=== PATIENT | female | born 1970 | race Caucasian/White ===

== ENCOUNTER 2020-11-05 11:18 | Outpatient (CLI) | payer BC, SELFPAY ==
[2020-11-07 06:28] LABS: FSH 44.9 mIU/mL (***); LH 26.6 mIU/mL (***)
[2020-11-08 12:00] LABS: Testosterone Total 18 ng/dL (2-45)
[2020-11-09 20:28] LABS: Estradiol, Ultrasensitive 40 pg/mL
== END 2020-11-05 11:19 | disposition home or self-care (01) ==
PROVIDERS: PCP Physician Assistant; Visit Provider Student in an Organized Health Care Education/Training Program
DX: N95.1 Menopausal and female climacteric states (principal)
CPT/HCPCS: 36415; 82670; 83001; 83002; 84403

== ENCOUNTER 2020-11-13 00:22 | Day surgery (SDC) | payer BC, SELFPAY ==
[2020-10-29 11:29] VITALS: BMI 41.8
[2020-11-13 09:43] VITALS: BP 130/86; PULSE 77; RESP 12; TEMP 36.2; O2SAT 96; BMI 41.1
[2020-11-13] MEDS: LACTATED RINGERS 1,000 ML 150 ML IV CONT (10:01)
--- NOTE | 2020-11-13 10:21 | P.PNAN_ITS ---
Anes - Initial Pre Proc Eval Procedure: Operation Date: 11/13/20 11:00 Proposed Procedures p Screening Colonoscopy - Kalia Espinal MD Date/Time: 11/13/20 10:21 Surgeon: Kalia Espinal MD Pre Op Diagnosis: neoplasm screening Patient Data Age: 50 Gender: F Height: 5 ft 5 in Weight: 112 kg Last Vital Signs Temp 36.2 C L 11/13/20 09:43 Pulse 77 11/13/20 09:43 Resp 12 11/13/20 09:43 BP 130/86 11/13/20 09:43 Pulse Ox 96 11/13/20 09:43 Allergies Allergy/AdvReac Type Severity Reaction Status Date / Time hydrocodone Allergy Mild Unknown Verified 11/13/20 09:39 codeine Allergy Unknown Unknown Verified 11/13/20 09:39 apremilast [From Otezla] AdvReac Severe suicidal Verified 11/13/20 09:39 thoughts adalimumab [From Humira] AdvReac Unknown Verified 11/13/20 09:39 Home Medications Medication Instructions Recorded Confirmed Type lisinopril 20 mg tablet 20 mg PO DAILY 09/16/19 10/29/20 History venlafaxine 100 mg tablet 100 mg PO BID 09/16/19 10/29/20 History ixekizumab 80 mg/mL subcutaneous 80 mg SUBCUT ONCE 09/25/20 10/29/20 History auto-injector sodium,potassium,mag sulfates 17.5 See Rx Instructions PO .COMPLEX 10/25/20 10/29/20 Rx gram-3.13 gram-1.6 gram oral soln #354 ml Patient hx anesthesia problems: none Family hx anesthesia problems: none PMFSH Past Medical History Medical History Anxiety Autoimmune disease Depression History of blood transfusion HTN (hypertension) Hx of induced 07/1995 Psoriasis Vaginal delivery 09/28/1997 Surgical History Surgical History H/O gastric bypass 2009 History of cholecystectomy 1999 History of endometrial ablation 2013 History of intestinal surgery 2015 Hx of section 05/15/2003 Status post breast biopsy [place] teeth removed Family History Family History Mother Family history of blood dyscrasia Cerebrovascular accident Father Hypertension Family history of elevated blood lipids Grandparent Acute myocardial infarction Social History Social History Smoking status: Never smoker Second hand tobacco smoke exposure: No Alcohol intake: former Living arrangements: with family Gender identity (if verbalized by the patient): Female Spiritual care concerns: No Anes - Eval Final PreProcedure Day of Procedure 11/13/20 10:21 Patient weight: morbidly obese Heart: regular rate and rhythm Lungs: clear to auscultation Airway: Mallampati scale class II Neurological: alert and oriented Last oral intake: >/= 8 hours ASA classification: III Emergent: no Anesthetic plan: proceed Anesthesia type and monitoring: general GIVS and standard monitoring Informed Consent: The patient's anesthetic plan and its attendant risks and benefits were discussed with the patient/family/POA. Questions were solicited and answers provided to the satisfaction of the patient/family/POA.
--- NOTE | 2020-11-13 10:53 | PM.HPGS ---
History of Present Illness History of Present Illness Consent: Risks, benefits, and alternatives have been discussed and questions answered. Patient agrees to proceed with procedure. Chief complaint: neoplasm screening Narrative: Maryam Isaasc is a 50 year old female here for first screening colonoscopy Review of Systems Constitutional: Constitutional: Denies headache(s) and Denies weakness Eyes: Eyes: Denies blurry vision ENT: Reports Normal hearing present, Denies headache(s) and Denies neck pain Cardiovascular: Cardiovascular: Denies chest pain and Denies dyspnea Respiratory: Respiratory: Denies dyspnea Gastrointestinal: Gastrointestinal: Reports no additional gastrointestinal complaints Genitourinary: Genitourinary: Denies dysuria Musculoskeletal: Musculoskeletal: Denies neck pain Integumentary/Breasts: Skin/Breast: Denies dry skin Neurologic: Reports Normal hearing present, Denies headache(s) and Denies weakness Psychiatric: Psychiatric: Denies anxiety Endocrine: Endocrine: Denies change in body appearance Hematologic/Lymphatic: Hematologic/Lymphatic: Denies easy bleeding Allergic/Immunologic: Allergic/Immunologic: Denies urticaria PMFSH Past Medical History Medical History Anxiety Autoimmune disease Depression History of blood transfusion HTN (hypertension) Hx of induced 07/1995 Psoriasis Vaginal delivery 09/28/1997 Surgical History Surgical History H/O gastric bypass 2009 History of cholecystectomy 1999 History of endometrial ablation 2013 History of intestinal surgery 2015 Hx of section 05/15/2003 Status post breast biopsy [place] teeth removed Family History Family History Mother Family history of blood dyscrasia Cerebrovascular accident Father Hypertension Family history of elevated blood lipids Grandparent Acute myocardial infarction Social History Social History Smoking status: Never smoker Second hand tobacco smoke exposure: No Alcohol intake: former Living arrangements: with family Gender identity (if verbalized by the patient): Female Spiritual care concerns: No Meds Home Medications and Allergies Home Medications Medication Instructions Recorded Confirmed Type lisinopril 20 mg tablet 20 mg PO DAILY 09/16/19 10/29/20 History venlafaxine 100 mg tablet 100 mg PO BID 09/16/19 10/29/20 History ixekizumab 80 mg/mL subcutaneous 80 mg SUBCUT ONCE 09/25/20 10/29/20 History auto-injector sodium,potassium,mag sulfates 17.5 See Rx Instructions PO .COMPLEX 10/25/20 10/29/20 Rx gram-3.13 gram-1.6 gram oral soln #354 ml Allergies Allergy/AdvReac Type Severity Reaction Status Date / Time hydrocodone Allergy Mild Unknown Verified 11/13/20 09:39 codeine Allergy Unknown Unknown Verified 11/13/20 09:39 apremilast [From Otezla] AdvReac Severe suicidal Verified 11/13/20 09:39 thoughts adalimumab [From Humira] AdvReac Unknown Verified 11/13/20 09:39 Vital Signs Vital Signs - 24 hr 11/13/20 09:43 Temperature 97.2 F L Pulse Rate 77 Respiratory Rate 12 Blood Pressure 130/86 Pulse Oximetry 96 Exam Const: General: comfortable and no acute distress HENMT: General nose exam: Normal nares present Eyes: General: appearance normal, both eyes and all related structures Neck: Neck: no JVD Resp: Auscultation: clear to auscultation bilaterally Cardio: Rate: regular rate Rhythm: regular rhythm GI: Inspection: non-distended GI Palp: Yes Soft to palpation Skin: General skin exam: normal color Neuro: General: gait normal Speech: normal speech Extrem: General: normal to inspection Psych: Mental Status: mental status grossly normal Assessment and Plan Assessment and angie
[2020-11-13 11:16] VITALS: BP 113/58; PULSE 64; RESP 18; O2SAT 97
[2020-11-13 11:26] VITALS: BP 118/79; PULSE 57; RESP 16; O2SAT 100
[2020-11-13 11:36] VITALS: BP 129/85; PULSE 60; RESP 15; O2SAT 100
== END 2020-11-13 12:10 | disposition home or self-care (01) ==
PROVIDERS: PCP Physician Assistant; Visit Provider Internal Medicine Gastroenterology
PROC: 0DJD8ZZ Inspection of Lower Intestinal Tract, Via Natural or Artificial Opening Endoscopic (ICD-10-PCS; CPT 45378; principal; 2020-11-13 11:00)
DX: Z12.11 Encounter for screening for malignant neoplasm of colon (principal); D12.5 Benign neoplasm of sigmoid colon; I10 Essential (primary) hypertension; M35.9 Systemic involvement of connective tissue, unspecified; L40.9 Psoriasis, unspecified; F41.8 Other specified anxiety disorders; Z98.84 Bariatric surgery status; E66.01 Morbid (severe) obesity due to excess calories; Z68.41 Body mass index [BMI] 40.0-44.9, adult
CPT/HCPCS: 45380; 88305; J2704; J7120

== ENCOUNTER 2022-05-15 01:34 | Emergency (ER) | payer BC, SELFPAY ==
[2022-05-15] VITALS (9 sets, daily range): BP systolic 154–178; BP diastolic 94–106; PULSE 74–94; RESP 15–20; TEMP 36.2; O2SAT 97–100
--- NOTE | ~2022-05-15 | CT_ITS ---
EXAMINATION: CT abdomen pelvis wo con DATE: 05/15/2022 02:53 INDICATION: Left kidney stone. TECHNIQUE: Computed tomography (CT) of the abdomen and pelvis was performed without intravenous contr ast. Automated exposure control and iterative reconstruction technique were employed. The dose-length product was 1236.58 mGy-cm. COMPARISON: CT abdomen and pelvis 09/11/2015 FINDINGS: The visualized portions of the lung bases demonstrate a calcified right lung nodule, consis tent with old granulomatous disease. No pleural effusion. The heart size is normal. No pericardial ef fusion. There is a small sliding hiatal hernia. There are surgical changes in the stomach. The liver is normal. There are changes of cholecystectomy. The spleen, pancreas, adrenal glands, and right kidn ey are normal. There is mild left hydronephrosis. There is a 7 mm stone in proximal left ureter. Ther e is a 2.4 cm cyst in left kidney. There are no dilated loops of bowel. The appendix is normal. There are no pathologically enlarged lymph nodes. There is no free intraperitoneal fluid. There is severe lower lumbar spondylosis. IMPRESSION: 1. 7 mm stone in proximal left ureter with mild left hydronephrosis. Reviewed, dictated and finalized at location A.
[2022-05-15 02:01] LABS: Basophils Percent Auto 0.4 % (0.2-1.2); Eosinophils Absolute Auto 0.2 K/mm3 (0-0.3); Eosinophils Percent Auto 2.1 % (0-4.4); Hematocrit 41.9 % (37.0-47.0); Hemoglobin 13.6 g/dL (12.0-15.0); Immature Granulocyte Absolute 0.04 K/mm3 (0.00-0.031); Immature Granulocyte Percent A 0.4 % (0-0.5); Lymphocytes Absolute Auto 4.27 K/mm3 (0.9-3.2); Lymphocytes Percent Auto 37.5 % (18.3-44.2); Mean Corpuscular HGB Conc 32.5 g/dl (32-36); Mean Corpuscular Hemoglobin 30.7 pg (26-34); Mean Corpuscular Volume 94.6 fl (80-100); Mean Platelet Volume 9.8 fl (7.4-10.4); Monocytes Absolute Auto 0.9 K/mm3 (0.1-0.6); Monocytes Percent Auto 8.3 % (2.6-8.5); Neutrophils Absolute Auto 5.9 K/mm3 (1.3-6.7); Neutrophils Percent Auto 51.3 % (45.5-73.1); Platelet Count Result 226 k/mm3 (150-375); Red Blood Count 4.43 M/mm3 (4.2-5.4); Red Cell Distribution Width 13.2 % (11.5-14.5); White Blood Count 11.4 K/mm3 (4.5-10.0)
[2022-05-15 02:10] LABS: Ethanol 96 mg/dL (<10)
[2022-05-15 02:11] LABS: Alanine Aminotransferase 26 U/L (6-35); Albumin Level 4.6 g/dL (3.5-5.1); Alkaline Phosphatase 105 U/L (38-126); Anion Gap 11 mmol/L (8-16); Aspartate Amino Transferase 39 U/L (14-36); Bilirubin,Total 0.3 mg/dL (0.2-1.3); Blood Urea Nitrogen 17 mg/dL (7-17); Calcium 9.2 mg/dL (8.4-10.2); Carbon Dioxide 24 mmol/L (22-30); Chloride 104 mmol/L (98-107); Estimated CRCL calculation 85 ml/min; Estimated Glomerular Filt Rate > 60; Glucose 103 mg/dL (65-110); Lipase 59 U/L (23-300); Sodium 139 mmol/L (137-145)
--- NOTE | 2022-05-15 02:34 | ED.GENADULT ---
HPI - General Adult General Chief complaint: Abdominal Pain Stated complaint: left flank/abd pain, hx gastric bypass Time Seen by Provider: 05/15/22 01:59 History of Present Illness HPI narrative: a 51-year-old female presenting to ED with sudden onset of left-sided flank pain. Patient says that it woke her from sleep at approximately 1:00 p.m.. It is a sharp pain on her left flank that radiates down into her left groin. It comes and goes. She says this feels similar to when she had a kidney stone in the past. Patient denies urinary symptoms. Patient denies nausea vomiting diarrhea. Related Data Home Medications Medication Instructions Recorded Confirmed lisinopril 20 mg tablet 20 mg PO DAILY 09/16/19 10/29/20 venlafaxine 100 mg tablet 100 mg PO BID 09/16/19 10/29/20 ixekizumab 80 mg/mL subcutaneous 80 mg subcut ONCE 09/25/20 10/29/20 auto-injector (Taltz Autoinjector) Allergies Allergy/AdvReac Type Severity Reaction Status Date / Time hydrocodone Allergy Mild Unknown Verified 05/15/22 01:46 codeine Allergy Unknown Unknown Verified 05/15/22 01:46 apremilast [From Otezla] AdvReac Severe suicidal Verified 05/15/22 01:46 thoughts adalimumab [From Humira] AdvReac Unknown Verified 05/15/22 01:46 Review of Systems Review of Systems: CONSTITUTIONAL: Denies night sweats. EYES: No eye pain ENT: Denies rhinorrhea CARDIOVASCULAR: Denies palpitations RESPIRATORY: Denies hemoptysis GASTROINTESTINAL: Denies hematemesis GENITOURINARY: Denies hematuria. SKIN: Denies rash MUSCULOSKELETAL: Denies myalgia. NEUROLOGIC: Denies weakness. PSYCHIATRIC: Denies delusions PMFSH Past Medical History Medical History Anxiety Autoimmune disease Colon cancer screening Depression History of blood transfusion HTN (hypertension) Hx of induced 07/1995 Psoriasis Vaginal delivery 09/28/1997 Surgical History Surgical History H/O gastric bypass 2009 History of cholecystectomy 1999 History of endometrial ablation 2014 History of intestinal surgery 2015 Hx of section 05/15/2003 Status post breast biopsy [place] teeth removed Family History Family History Mother Family history of blood dyscrasia Cerebrovascular accident Father Hypertension Family history of elevated blood lipids Grandparent Acute myocardial infarction Social History Social History Smoking status: Never smoker Second hand tobacco smoke exposure: No Alcohol intake: former Alcohol use details: stopped drinking 11/09. [facility] Gender identity (if verbalized by the patient): Female Spiritual care concerns: No Exam Narrative: APPEARANCE: No apparent distress. Head atraumatic. EYES: PERRLA/EOMI, NOSE: Normal no drainage NECK: Supple, Trachea midline RESPIRATORY: CTAB, No increased work of breathing. CARDIOVASCULAR: S1S2 appreciated ABDOMINAL: Soft, nontender, nondistended, no CVA tenderness MUSCULOSKELETAl: No obvious deformities NEURO: Alert. Moving 4/4 extremities SKIN:: Warm, dry. Normal color PSYCHIATRIC: Normal affect Course Vital Signs Vital signs: Vital Signs Temperature 97.2 F L 05/15/22 01:40 Pulse Rate 81 05/15/22 01:40 Respiratory Rate 15 05/15/22 01:40 Blood Pressure 178/106 H 05/15/22 01:40 Pulse Oximetry 100 05/15/22 01:40 Oxygen Delivery Room Air 05/15/22 01:40 Temperature 97.2 F L 05/15/22 01:40 Pulse Rate 94 05/15/22 02:00 Respiratory Rate 15 05/15/22 02:00 Blood Pressure 154/94 H 05/15/22 02:17 Pulse Oximetry 100 05/15/22 02:19 Oxygen Delivery Room Air 05/15/22 01:40 Medical Decision Making MDM Narrative Medical decision making narrative: is a 51-year-old female presenting ED with flank pain. CT re
[2022-05-15] MEDS: KETOROLAC 15 MG/ML VIAL (*BKC) IV PUSH (02:41)
[2022-05-15 02:52] LABS: RBC Urine 0-2 /hpf (0-2); Squamous Epithelial Cell Urine Rare /hpf (Few); WBC Urine 0-3 /hpf
[2022-05-15 02:56] LABS: Appearance Urine Clear (Clear); Bilirubin Urine Negative (Negative); Color Urine Yellow (Yellow); Glucose Urine UA Negative (Negative); Ketones Urine Negative (Negative); Leukocyte Esterase Ur Trace LEU/UL (Negative); Nitrate Urine Negative (Negative); Protein Urine Negative (Negative); Urobilinogen Urine 0.2 mg/dL (<2.0); pH Urine 5.5 (5.0-9.0)
[2022-05-15] MEDS: ACETAMINOPHEN 500 MG TABLET 1000 MG PO (02:58)
[2022-05-15 02:59] LABS: Add Urine Microscopic? YES; Blood Urine Trace (Negative)
== END 2022-05-15 05:47 | disposition home or self-care (01) ==
PROVIDERS: Emergency Provider Emergency Medicine; PCP Physician Assistant
DX: N13.2 Hydronephrosis with renal and ureteral calculous obstruction (principal); Z98.84 Bariatric surgery status; I10 Essential (primary) hypertension; M35.9 Systemic involvement of connective tissue, unspecified; F41.9 Anxiety disorder, unspecified; F32.A Depression, unspecified
CPT/HCPCS: 36415; 74176; 80053; 80307; 81001; 83690; 85025; 96374; 99284; A9270; J1885

== ENCOUNTER 2022-05-22 08:15 | Outpatient (CLI) | payer BC, SELFPAY ==
--- NOTE | 2022-05-22 08:28 | ECG_ITS ---
Measurements Intervals [place] Rate: 74 P: 38 PA: 168 QRS: -44 QRSD: 90 T: 1 QT: 361 QTc: 403 Interpretive Statements SINUS RHYTHM LEFT AXIS DEVIATION POOR R WAVE PROGRESSION, ANTERIOR LEADS BORDERLINE ECG NO PREVIOUS ECG AVAILABLE FOR COMPARISON Electronically Signed On 05-22-2022 8:53:25 CDT by Adonis Cervantes D.O.
[2022-05-22 08:54] LABS: Anion Gap 9 mmol/L (8-16); Blood Urea Nitrogen 19 mg/dL (7-17); Calcium 9.5 mg/dL (8.4-10.2); Carbon Dioxide 32 mmol/L (22-30); Chloride 95 mmol/L (98-107); Estimated Glomerular Filt Rate 52; Glucose 94 mg/dL (65-110); Potassium 4.5 mmol/L (3.4-5.0); Sodium 136 mmol/L (137-145)
[2022-05-22 09:07] LABS: Prothrombin Time 12.5 Seconds (11.1-14.7)
[2022-05-22 09:08] LABS: Partial Thromboplastin Time 25.6 SECONDS (22.3-36.8)
[2022-05-22 09:08] LABS: Mucus Urine Rare /lpf; Squamous Epithelial Cell Urine Few /hpf (Few)
[2022-05-22 09:09] LABS: Appearance Urine Clear (Clear); Bilirubin Urine 1+ (Negative); Blood Urine Trace-lysed (Negative); Color Urine Yellow (Yellow); Glucose Urine UA Negative (Negative); Ketones Urine Negative (Negative); Leukocyte Esterase Ur Trace LEU/UL (Negative); Nitrate Urine Negative (Negative); Protein Urine Negative (Negative); Specific Grav Ur 1.025 (1.001-1.035)
[2022-05-22 09:10] LABS: Add Urine Microscopic? YES
== END 2022-05-22 08:16 | disposition home or self-care (01) ==
LOC: ANHSURGERY 08:22
PROVIDERS: Anesthesiology; PCP Physician Assistant; Visit Provider Urology
DX: N20.0 Calculus of kidney (principal); I10 Essential (primary) hypertension; Z79.899 Other long term (current) drug therapy; Z01.818 Encounter for other preprocedural examination; R94.31 Abnormal electrocardiogram [ECG] [EKG]
CPT/HCPCS: 36415; 80048; 81001; 85610; 85730; 87086; 93005

== ENCOUNTER 2022-05-23 00:39 | Day surgery (SDC) | payer BC, SELFPAY ==
[2022-05-21 15:39] VITALS: BMI 35.9
--- NOTE | 2022-05-21 15:54 | PC.NURSE ---
Report to the Outpatient Waiting Room, entrance under the green pavilion located off [facility], at time 10:00 on date 05/23/22. OR Time: 12:00. - You and your visitor will be asked to self-screen and do not enter if you have any COVID symptoms. - Only one visitor and NO children visitors are allowed at this time. - The patient visitor is requested to leave or wait in car when not with patient due to restrictions. - A mask is required within the hospital. Patients may have clear liquids (water, carbonated beverages, clear teas, apple juice) until 3 hours prior to surgery (9:00) with a maximum of 20 ounces. - No food from midnight until time of surgery Take the following medications with a SIP of water the morning of surgery: VENLAFAXINE, PAIN PILL (IF NEEDED) Medications to discontinue per physician: N/A Date to take last dose: N/A Please no make-up, nail divehi, hairspray, perfume, deodorant, or body powder the day of surgery. No jewelry (including any body piercings) or valuables the day of surgery, leave them at home. Please take a shower or bath the night before, or the morning of, surgery with an antibacterial soap. Wear comfortable, loose fitting clothing. - Jewelry must be removed prior to entering the operating room. Rings and piercings that are not removed may be cut off. - The hospital will not accept responsibility for valuables. - Please leave all valuables, including medications, at home the day of surgery. If you are going home after surgery, a licensed cdl bulk driver must drive you home. - NO public transportation without another adult. - We recommend that an adult stay with you for 24 hours following discharge. - We also recommend that you do not drive, make important decision, drink alcoholic beverages, or take any drugs that were not prescribed by your health care provider for at least 24 hours after your discharge time. Follow any additional instructions given to you from your surgeon. If you or anyone in your household have experienced Covid symptoms in the past week, please notify your surgeon or the nurse liaison at the phone number below for possible testing. Telephone instructions given to PT - MAYO REED and asked if any additional questions and then verbalized understanding. Patient advised to call surgeon office or pre surgery nurse liaison [phone] if any additional questions.
--- NOTE | 2022-05-22 15:42 | WPDANESEPPF ---
Anes - Initial Pre Proc Eval Procedure: Operation Date: 05/23/22 12:00 Proposed Procedures p Left Ureteral Extracorporeal Shock Wave Lithotripsy - Rad Varela MD s Possible Cystoscopy, Left Ureteroscopy, Left Stone Extraction, Left Retrograde Pyelogram, Left Stent Placement, Holmium Laser Lithotripsy - Rad Varela MD Date/Time: 05/22/22 15:42 Surgeon: Rad Varela MD Pre Op Diagnosis: Lt Ureteral Stone Patient Data Age: 51 Gender: F Height: 1.66 m Weight: 99.34 kg Allergies Allergy/AdvReac Type Severity Reaction Status Date / Time hydrocodone Allergy Mild Difficulty Verified 05/23/22 10:45 Breathing codeine Allergy Unknown Difficulty Verified 05/23/22 10:45 Breathing apremilast [From Otezla] AdvReac Severe suicidal Verified 05/23/22 10:45 thoughts adalimumab [From Humira] AdvReac Other Verified 05/23/22 10:45 Home Medications Medication Instructions Recorded Confirmed Type venlafaxine 100 mg tablet 100 mg PO BID 09/16/19 05/23/22 History hydrocodone 5 mg-acetaminophen 325 1 tablet PO Q4H PRN pain 7 days 05/15/22 05/23/22 Rx mg tablet #30 tabs ondansetron 4 mg disintegrating 4 mg PO Q8H PRN nausea and 05/15/22 05/23/22 Rx tablet vomiting #10 tabs tamsulosin 0.4 mg capsule 0.4 mg PO HS 14 days #14 caps 05/15/22 05/23/22 Rx acetaminophen 500 mg tablet 500 mg PO TID PRN Pain 05/21/22 05/23/22 History lisinopril 20 1 tablet PO DAILY 05/21/22 05/23/22 History mg-hydrochlorothiazide 12.5 mg tablet risankizumab-rzaa 150 mg/mL 150 mg subcut ONCE 05/21/22 05/23/22 History subcutaneous pen injector (Skyrizi) Patient hx anesthesia problems: none Family hx anesthesia problems: none Results Review: All pre-operative results and documents have been reviewed as part of the pre-operative evaluation. [facility] Past Medical History Medical History Anxiety Autoimmune disease Colon cancer screening Depression History of blood transfusion HTN (hypertension) Hx of induced 07/1995 Psoriasis Vaginal delivery 09/28/1997 Surgical History Surgical History H/O gastric bypass 2009 History of cholecystectomy 2000 History of endometrial ablation 2014 History of intestinal surgery 2015 Hx of section 05/15/2003 Status post breast biopsy [place] teeth removed Family History Family History Mother Family history of blood dyscrasia Cerebrovascular accident Father Hypertension Family history of elevated blood lipids Grandparent Acute myocardial infarction Social History Social History Smoking status: Never smoker Second hand tobacco smoke exposure: No Alcohol intake: former Drinks per week: 3 Alcohol use details: stopped drinking 11/09. [facility] Substance use: never Substance use type: does not use Living arrangements: with family Additional living arrangements comments: DAUGHTER Gender identity (if verbalized by the patient): Female Spiritual care concerns: No Anes - Eval Final PreProcedure Day of Procedure 05/22/22 15:42 Patient weight: morbidly obese Heart: regular rate and rhythm Lungs: clear to auscultation Airway: Mallampati scale class II Neurological: alert and oriented Last oral intake: >/= 8 hours ASA classification: III Emergent: no Anesthetic plan: proceed Anesthesia type and monitoring: general LMA and standard monitoring Results Review: All pre-operative results and documents have been reviewed as part of the pre-operative evaluation. Informed Consent: The patient's anesthetic plan and its attendant risks and benefits were discussed with the patient/family/POA. Questions were solicited and answers provided to the satisfaction of the patient/family/POA.
[2022-05-23] VITALS (8 sets, daily range): BP systolic 119–139; BP diastolic 73–90; PULSE 58–81; RESP 15–18; TEMP 36–36.6; O2SAT 100
--- NOTE | ~2022-05-23 | XR_ITS ---
EXAMINATION: XR abdomen/kub 1V DATE: 05/23/2022 10:25 INDICATION: Kidney stone. TECHNIQUE: A supine view of the abdomen on 2 radiographs was obtained. COMPARISON: CT abdomen and pelvis 05/15/2022 FINDINGS: There are no dilated loops of bowel. There are phleboliths in the pelvis. There is 11 x 5 m m stone in proximal left ureter. Surgical clips in the right upper quadrant are likely from cholecyst ectomy. There are staple lines in the area of the stomach. IMPRESSION: 1. 11 x 5 mm stone in proximal left ureter. Reviewed, dictated and finalized at location A.
[2022-05-23] MEDS: LACTATED RINGERS 1,000 ML 30 ML IV CONT (10:59)
[2022-05-23] MEDS: ceFAZolin 2 GM/D5W 50 ML 2 GM/50 ML BAG IVPB (12:51)
--- NOTE | 2022-05-23 13:38 | W.PM.PROC2 ---
Procedure Note - Detailed Date of Procedure 05/23/22 Pre-op Diagnosis Lt Ureteral Stone Post-op Diagnosis Same Procedure Performed Eswl of left ureteral calculus Surgeon Rad Varela MD Anesthesia General Description of Procedure Patient taken to operative suite and correctly identified. Once anesthesia was obtained the left ureteral stone 7 x 11 mm was localized in both planes. 3000 shocks were given to the stone. There appeared to be good fragmentation. She was taken to recovery room in stable condition. Drains No Packing No Pathology None sent Complications No immediate complications Condition Stable Disposition PACU
== END 2022-05-23 15:37 | disposition home or self-care (01) ==
PROVIDERS: PCP Physician Assistant; Visit Provider Urology
PROC: (CPT 50590; principal; 2022-05-23 12:00)
DX: N20.1 Calculus of ureter (principal); I10 Essential (primary) hypertension; L40.9 Psoriasis, unspecified; M35.9 Systemic involvement of connective tissue, unspecified; F41.9 Anxiety disorder, unspecified; F32.A Depression, unspecified; Z98.84 Bariatric surgery status; E66.01 Morbid (severe) obesity due to excess calories; Z68.36 Body mass index [BMI] 36.0-36.9, adult
CPT/HCPCS: 50590; 74018; J0690; J1100; J2250; J2405; J2704; J7120

== ENCOUNTER 2022-06-06 14:05 | Outpatient (CLI) | payer BC, SELFPAY ==
--- NOTE | ~2022-06-06 | XR_ITS ---
EXAMINATION: XR abdomen/kub 1V DATE: 06/06/2022 14:29 INDICATION: Left ureteral stone. TECHNIQUE: A supine view of the abdomen on 2 radiographs was obtained. COMPARISON: CT abdomen and pelvis 05/15/2022 FINDINGS: There are no dilated loops of bowel. Surgical clips in the right upper quadrant are likely from cholecystectomy. There are surgical changes in the stomach. There are phleboliths in the pelvis. IMPRESSION: 1. No visible urolithiasis. Reviewed, dictated and finalized at location A. IMPRESSION: 1. No visible urolithiasis.
== END 2022-06-06 14:06 | disposition home or self-care (01) ==
PROVIDERS: PCP Physician Assistant; Visit Provider Urology
DX: N20.1 Calculus of ureter (principal)
CPT/HCPCS: 74018

== ENCOUNTER 2023-08-16 15:39 | Emergency (ER) | payer BC, SELFPAY ==
[2023-08-16] VITALS (9 sets, daily range): BP systolic 109–129; BP diastolic 70–83; PULSE 57–81; RESP 10–20; TEMP 36.5; O2SAT 97–100
--- NOTE | ~2023-08-16 | CT_ITS ---
EXAMINATION: CT brain wo con DATE: 08/16/2023 17:02 INDICATION: head injury, hematoma . TECHNIQUE: Computed tomography (CT) of the head was performed without intravenous contrast. The mA wa s adjusted according to patient size. Iterative reconstruction technique was employed. The dose-lengt h product was 605.33 mGy-cm. COMPARISON: None. FINDINGS: No acute intracranial hemorrhage or extra-axial fluid collection. No hydrocephalus, mass, or herniation. No acute ischemic infarct. Unremarkable dural venous sinus attenuation. No acute osseous abnormality. Left posterior scalp contusion/laceration. The aerated spaces are clear. IMPRESSION: No acute intracranial process. Reviewed, dictated and finalized at location K. ING MACHINE OPERATOR SINGLE NEEDLE
--- NOTE | ~2023-08-16 | XR_ITS ---
EXAM: XR ankle LT min 3V DATE: 08/16/2023 16:02 HISTORY: fall, rolled ankle . COMPARISON: X-ray left tibia/fibula 03/28/2009. FINDINGS: Normal mineralization. No fracture or dislocation. No lytic or blastic lesion. Joint space s are maintained. Achilles and plantar enthesopathy. No erosion or periosteal change. Soft tissues wi thin normal limits. IMPRESSION: No acute osseous finding in the left ankle. Reviewed, dictated and finalized at location K. TRANSITION COORDINATOR
[2023-08-16] MEDS: LIDO 1%/EPINEPHRINE 1:100,000 20 ML VIAL 10 ML INFILTRATE (15:40)
[2023-08-16] MEDS: ONDANSETRON HCL ODT 4 MG TABLET PO (15:40)
--- NOTE | 2023-08-16 16:06 | ED.GENADULT ---
HPI - General Adult General Chief complaint: Fall Stated complaint: fall Source: patient Mode of arrival: ambulatory Limitations: no limitations History of Present Illness HPI narrative: This is a 33-year-old female who presents to the ED with chief complaint of a fall. She was on the last step of a step ladder when she missed a step and rolled her left ankle. She reports this caused her to fall through the glass window pain. She was on the 1st story of the building and fell onto the sidewalk outside. Reports the swelling to the back of the head as well as lacerations to the back of the left arm. Reports left ankle pain. Reports a little bit of nausea. She denies syncope, numbness, weakness, speech change, vision change. Denies any further sites of pain or injury. Related Data Home Medications Medication Instructions Recorded Confirmed venlafaxine 100 mg tablet 100 mg PO BID 09/16/19 08/06/23 acetaminophen 500 mg tablet 500 mg PO TID PRN Pain 05/21/22 08/06/23 lisinopril 20 1 tablet PO DAILY 05/21/22 08/06/23 mg-hydrochlorothiazide 12.5 mg tablet risankizumab-rzaa 150 mg/mL 150 mg subcut ONCE 05/21/22 08/06/23 subcutaneous pen injector (Skyrizi) clobetasol 0.05 % topical ointment topical 06/15/23 08/06/23 deucravacitinib 6 mg tablet 6 mg PO DAILY 06/15/23 08/06/23 (Sotyktu) Allergies Allergy/AdvReac Type Severity Reaction Status Date / Time hydrocodone Allergy Mild Difficulty Verified 06/15/23 14:09 Breathing codeine Allergy Unknown Difficulty Verified 06/15/23 14:09 Breathing apremilast [From Otezla] AdvReac Severe suicidal Verified 06/15/23 14:09 thoughts adalimumab [From Humira] AdvReac Other Verified 06/15/23 14:09 Review of Systems Review of Systems: All systems as dictated in [facility] Past Medical History Medical History Anxiety Degenerative disc disease at L5-S1 level Factor VIII deficiency History of kidney stones HTN (hypertension) Major depressive disorder, recurrent, moderate Psoriasis Surgical History Surgical History H/O gastric bypass 01/29/2009 History of cholecystectomy 09/2000 History of colonoscopy with polypectomy 2020 History of endometrial ablation 07/11/2014 History of intestinal surgery laparoscopic repair volvulus 03/24/2015 History of lithotripsy 05/23/2022 Hx of section 1997, 05/15/2003 Status post breast biopsy [place] teeth removed Family History Family History Mother Family history of blood dyscrasia Cerebrovascular accident Father Hypertension Family history of elevated blood lipids Grandparent Acute myocardial infarction Social History Social History Smoking status: Never smoker Second hand tobacco smoke exposure: No Alcohol intake: current Drinks per week: 3 Alcohol use details: stopped drinking 11/09. [place] Substance use: never Substance use type: does not use Lack of Transportation: No Lack of Food: Never True Current Housing: I Have Housing Concerned About Future Housing: No Difficulty Paying Gas/Electric Bills: No Difficulty Paying for Meds: No Currently Unemployed: No Living arrangements: with family Additional living arrangements comments: DAUGHTER Occupation/Education: occupation Gender identity (if verbalized by the patient): Female Sexual Orientation (if Verbalized by the Patient): Straight or Heterosexual Spiritual care concerns: No Exam Narrative: GENERAL: Well-appearing, well-nourished, and in no acute distress. HEAD: Normocephalic, atraumatic. EYES: PERRLA and EOMI. ENT: Nares clear, no rhinorrhea or epistaxis. Mucous membranes moist. Oropharynx without tonsillar hypertrophy exudate or other lesions. NECK: Suppl
== END 2023-08-16 19:32 | disposition home or self-care (01) ==
PROVIDERS: Emergency Provider Physician Assistant; PCP Family Medicine
DX: S01.01XA Laceration without foreign body of scalp, initial encounter (principal); S51.812A Laceration without foreign body of left forearm, initial encounter; S41.112A Laceration without foreign body of left upper arm, initial encounter; S99.912A Unspecified injury of left ankle, initial encounter; I10 Essential (primary) hypertension; L40.9 Psoriasis, unspecified; D66 Hereditary factor VIII deficiency; M51.37 Other intervertebral disc degeneration, lumbosacral region; F33.9 Major depressive disorder, recurrent, unspecified; F41.9 Anxiety disorder, unspecified; Z98.84 Bariatric surgery status; Z87.442 Personal history of urinary calculi; Z90.49 Acquired absence of other specified parts of digestive tract; W13.4XXA Fall from, out of or through window, initial encounter
CPT/HCPCS: 12001; 12032; 70450; 73610; 99284; A9270

== ENCOUNTER 2025-01-19 13:11 | Outpatient (CLI) | payer OTHER, SELFPAY ==
[2025-01-19 14:25] LABS: HIV 1/2 Ab P24 Ag Result Negative (Negative)
[2025-01-19 17:46] LABS: Syphilis IgG/IgM Antibody Negative (Negative)
[2025-01-19 18:38] LABS: Hepatitis B Surface Antigen Negative (Negative)
[2025-01-19 18:56] LABS: Hepatitis C Virus Antibody Negative (Negative)
== END 2025-01-19 13:12 | disposition home or self-care (01) ==
LOC: ANHLAB 13:13
PROVIDERS: PCP Nurse Practitioner Family; Visit Provider Nurse Practitioner Family
DX: Z11.3 Encounter for screening for infections with a predominantly sexual mode of transmission (principal)
CPT/HCPCS: 36415; 86593; 86703; 86803; 87340; G0432